=== PATIENT | female | born 1985 | race Caucasian/White ===

== ENCOUNTER 2018-07-24 19:23 | Emergency (ER) | payer OTHER ==
[~2018-07-24] VITALS: Ht 154.9 cm; Wt 108.9 kg
--- NOTE | 2018-07-24 19:30 | NUR ---
PT BBSELF FROM HOME C/C R FLANK PAIN WITH URINARY FREQUENCY X "THIS WHOLE YEAR",WORSE TODAY.-N/V/D. -DYSURIA. -HEMATURIA. PT STATES SHOOTING PAIN NON RADIATING 6/10 ON THE R FLANK. URINE SAMPLE COLLECTED AND CALLED LAB FOR LICENSED ACUPUNCTURIST. SKIN WNL. PT IS AAOX4. NO S/S OF ACUTE DISTRESS. RESP EVEN AND UNLABORED. PT RESTING COMFORTABLY IN BED. MOTHER BEDSIDE. 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
[2018-07-24 19:51] LABS: BASOPHILS # (AUTO) 0.1 /CMM (0.0-0.2); BASOPHILS % (AUTO) 1.5 % (0.0-2.0); HEMATOCRIT 41 % (33-45); HEMOGLOBIN 13.5 g/dL (11.5-14.8); LYMPHOCYTES # (AUTO) 2.2 /CMM (0.8-4.8); LYMPHOCYTES % (AUTO) 23.2 % (20.0-44.0); MEAN CORPUSCULAR HEMOGLOBIN 29 PG (26.0-33.0); MEAN CORPUSCULAR HGB CONC 33 g/dl (31.0-36.0); MEAN CORPUSCULAR VOLUME 87 fL (82-100); MONOCYTES # (AUTO) 0.7 /CMM (0.1-1.30); MONOCYTES % (AUTO) 7.2 % (2.0-12.0); NEUTROPHILS # (AUTO) 6.3 /CMM (1.8-8.9); NEUTROPHILS % (AUTO) 65.1 % (43.0-81.0); PLATELET COUNT (AUTO) 430 /CMM (150-450); RDW COEFFICIENT OF VARIATION 13.5 (11.5-15.0); RED BLOOD CELL COUNT(AUTO) 4.71 MIL/uL (4.0-5.2); WHITE BLOOD COUNT (AUTO) 9.6 K/uL (4.3-11.0)
[2018-07-24 19:53] LABS: APPEARANCE,URINE Cloudy (CLEAR); BILIRUBIN,URINE Negative (NEGATIVE); BLOOD, URINE Negative Ery/uL (NEGATIVE); COLOR,URINE Yellow (YELLOW); KETONES,URINE Trace (NEGATIVE); LEUKOCYTE ESTERASE ,URINE Moderate (NEGATIVE); NITRITE, URINE Negative (NEGATIVE); PROTEIN,URINE 30 mg/dl (NEGATIVE); UGLUCOSE Negative (NEGATIVE); UROBILINOGEN,URINE 0.2 EU/dL (0.2)
[2018-07-24 19:57] LABS: RBC,URINE 0-2 /HPF (0-2)
[2018-07-24 19:58] LABS: BACTERIA,URINE Few /HPF (None Seen); SQUAMOUS EPITHELIAL CELL,UR Few /HPF (None Seen)
[2018-07-24 20:01] LABS: CALCIUM, SERUM 9.1 mg/dL (8.5-10.1); CREATININE 0.7 mg/dL (0.6-1.3); POTASSIUM 4.1 mmol/L (3.5-5.1)
--- NOTE | 2018-07-24 21:02 | NUR ---
Patient discharged to home in stable condition. Written and verbal after care instructions given. Patient verbalizes understanding of instruction. NO S/S OF DISTRESS UPON DISCHARGE.
[2018-07-24 21:03] VITALS: BP 144/79
== END 2018-07-24 21:04 | disposition home or self-care (01) ==
LOC: ER 19:26
DX: N39.0 Urinary tract infection, site not specified (principal); F17.200 Nicotine dependence, unspecified, uncomplicated; Z90.89 Acquired absence of other organs; Z88.2 Allergy status to sulfonamides; Z60.2 Problems related to living alone
CPT/HCPCS: 36415; 76770; 80048; 81001; 84703; 85025; 87086; 99285; 99406; A4606; Z7610; 81000-TC; 87186-TC

== ENCOUNTER 2019-12-26 19:19 | Emergency (ER) | payer BC, OTHER ==
[~2019-12-26] VITALS: Ht 152.4 cm; Wt 77.1 kg
[2019-12-26 19:23] VITALS: BP 138/92
--- NOTE | 2019-12-26 20:07 | NUR ---
RADIOLOGY AT BEDSIDE FOR CXR
== END 2019-12-26 20:32 | disposition home or self-care (01) ==
LOC: ER 20:00
DX: J40 Bronchitis, not specified as acute or chronic (principal); Z90.89 Acquired absence of other organs; Z88.2 Allergy status to sulfonamides; Z60.2 Problems related to living alone
CPT/HCPCS: 71045-TC